=== PATIENT | male | born 1990 ===

== ENCOUNTER 2023-04-29 07:12 | Outpatient (RCR) | payer OTHER, SELFPAY | END 2023-04-29 23:59 | disposition home or self-care (01) | LOC: ROT 07:12 | PROVIDERS: ATTENDING PHYSICIAN Nurse Practitioner | DX: S62.002D Unspecified fracture of navicular [scaphoid] bone of left wrist, subsequent encounter for fracture with routine healing (principal); Z73.6 Limitation of activities due to disability | CPT/HCPCS: 97010; 97110; 97165 ==